=== PATIENT | male | born 2005 | race Two or more races ===

== ENCOUNTER 2025-07-12 19:20 | Emergency (ER) | payer MEDICAID, OTHER ==
[~2025-07-12] VITALS: Ht 177.8 cm; Wt 64.1 kg
--- NOTE | 2025-07-12 20:18 | DVH ---
CLINICAL INDICATION: ARM PAIN TECHNIQUE: XYXY L ELBOW 3 VIEW XRAY Comparison: XY L FOREARM XRAY on DOS: 07/12/25 FINDINGS/IMPRESSION: : Displaced oblique fracture through the proximal diaphysis of the ulna with a full shafts width national business director ior displacement of the distal fragment and significant fracture fragment overlap. Associated dislocation of the radial head with respect to the capitellum.
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
[2025-07-12 20:50] VITALS: TEMP 99.9
[2025-07-12 20:51] VITALS: PULSE 86; RESP 19; O2SAT 99
[2025-07-12] MEDS: PROPOFOL 10 MG/ML 20 ML IV ONE (22:02)
[2025-07-12] MEDS ORDERED: HYDR-4902 PO (22:32)
--- NOTE | 2025-07-12 22:33 | DVH ---
CLINICAL INDICATION: reduction TECHNIQUE: XYXY L ELBOW 3 VIEW XRAY Comparison: XY L FOREARM XRAY on DOS: 07/12/25, XY L ELBOW 3 VIEW XRAY on DOS: 07/12/25 FINDINGS/IMPRESSION: : Suboptimal assessment with a single lateral view. Proximal ulnar fracture appears well positioned and aligned. Residual anterior subluxation/dislocation of the radial head.
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
[2025-07-12 22:57] VITALS: BP 131/80; PULSE 77; RESP 13; O2SAT 100
== END 2025-07-12 23:12 | disposition home or self-care (01) ==
LOC: ER 19:20
DX: S52.123A Displaced fracture of head of unspecified radius, initial encounter for closed fracture (principal); S52.002A Unspecified fracture of upper end of left ulna, initial encounter for closed fracture; Y08.89XA Assault by other specified means, initial encounter; Y93.01 Activity, walking, marching and hiking; Y93.89 Activity, other specified; Y92.89 Other specified places as the place of occurrence of the external cause; Y99.8 Other external cause status
CPT/HCPCS: 25535; 73080; 73090; 99152; 99285; J2704